=== PATIENT | male | born 1995 | race Caucasian/White ===

== ENCOUNTER 2019-09-04 21:40 | Emergency (ER) | payer BC ==
[~2019-09-04] VITALS: Ht 180.3 cm; Wt 77.1 kg
[2019-09-04 23:21] LABS: BASOPHILS 0.7 % (0.0-2.0); EOSINOPHILS 1.7 % (0.0-3.0); HEMATOCRIT 45.5 % (42.0-52.0); HEMOGLOBIN 15.4 gm/dL (14.0-18.0); LYMPHOCYTES 26.5 % (24.0-44.0); MCHC 33.8 g/dL (28.0-37.0); MCV 91.9 fL (80.0-100.0); MONOCYTES 7.4 % (1.0-8.0); PLATELET COUNT 259 thou/uL (150-400); POLYS 63.7 % (36.0-66.0); RBC 4.96 mil/uL (4.50-6.00); RDW 13.4 % (10.5-14.5); WBC 6.3 thou/uL (4.0-11.0)
[2019-09-04 23:28] LABS: ANION GAP 12 mmol/L (7-16); BUN 17 mg/dL (7-18); CALCIUM 9.3 mg/dL (8.5-10.1); CHLORIDE 102 mmol/L (98-107); CO2 27 mmol/L (21-32); CREATININE 1.1 mg/dL (0.7-1.3); GLUCOSE 106 mg/dL (74-106); SODIUM 141 mmol/L (136-145)
[2019-09-04 23:34] LABS: ALBUMIN 4.6 g/dL (3.4-5.0); DIRECT BILIRUBIN < 0.1 mg/dL (<0.1-0.2); MAGNESIUM 2.2 mg/dL (1.8-2.4); SGOT 15 U/L (15-37); SGPT 21 U/L (30-65); TOTAL BILIRUBIN 0.2 mg/dL (<0.1-1.0); TOTAL PROTEIN 8.2 g/dL (6.4-8.2)
[2019-09-05] VITALS: BP 111/65
--- NOTE | 2019-09-08 13:00 | EKG ---
[address] [address] ELECTROCARDIOGRAM REPORT Name: GHULAM HAM Room #: [facility]#: [id number] Admission: 09/04/19 Attend Phys: Discharge: 09/05/19 Date of : [birth year] Report #: [id number] THIS REPORT FOR: //name// [facility] ED Test Date: 2019-09-04 Test Time: 22:05:17 Pat Name: GHULAM HAM Department: Room: Gender: Sc[employer]aker: ALYSHA : 1995 Requested By: Pricilla Garcia Order Number: [id number] MD: Daryn Hoffman Measurements Intervals [place] Rate: 66 P: 40 DC: 156 QRS: 49 QRSD: 94 T: 45 QT: 394 QTc: 413 Interpretive Statements Sinus rhythm RSR' in V1 or V2, probably normal variant ST elev, probable normal early repol pattern No previous ECG available for comparison Electronically Signed On 09-08-2019 12:59:32 BUSINESS PROCESS ARCHITECT by Daryn Hoffman [email or web address] <ELECTRONICALLY SIGNED> By: Daryn Hoffman MD 09/08/19 2889 04 04 Daryn Hoffman MD /COTY
== END 2019-09-05 00:01 | disposition home or self-care (01) ==
LOC: ER 21:40
PROVIDERS: Emergency Medicine
DX: R00.2 Palpitations (principal); R06.02 Shortness of breath

== ENCOUNTER 2020-10-04 05:02 | Emergency (ER) | payer BC ==
[~2020-10-04] VITALS: Ht 180.3 cm; Wt 76.2 kg
[2020-10-04] MEDS ORDERED: ACETAMINOPHEN PO (05:09)
[2020-10-04 07:18] LABS: ABSOLUTE NEUTROPHILS 1.4 thou/uL (1.4-8.2); BASOPHILS 0.9 % (0.0-2.0); EOSINOPHILS 1.1 % (0.0-3.0); HEMATOCRIT 42.3 % (42.0-52.0); HEMOGLOBIN 14.3 gm/dL (14.0-18.0); LYMPHOCYTES 34.4 % (24.0-44.0); MCH 30.2 pg (26.0-34.0); MCHC 33.8 g/dL (28.0-37.0); MCV 89.1 fL (80.0-100.0); MONOCYTES 16.9 % (1.0-8.0); PLATELET COUNT 235 thou/uL (150-400); POLYS 46.7 % (36.0-66.0); RBC 4.75 mil/uL (4.50-6.00); RDW 13.3 % (10.5-14.5)
[2020-10-04 07:27] LABS: CALCIUM 9.5 mg/dL (8.5-10.1); POTASSIUM 3.7 mmol/L (3.5-5.1)
[2020-10-04 08:31] VITALS: BP 104/69
--- NOTE | 2020-10-04 11:13 | EKG ---
[place] [address] [facility] [place] [address] ELECTROCARDIOGRAM REPORT Name: FATOUMATAGHULAM [facility] [id number] Admission: 10/04/20 Attend Phys: Discharge: Date of : [birth year] Report #: [id number] [facility] ED Test Date: 2020-10-04 Test Time: 06:35:28 Pat Name: GHULAM HAM Department: Room: Gender: M [place]: [facility] : 1995 Requested By: Eh Gavin Order Number: [id number] MD: Thang Butler Measurements Intervals [place] Rate: 64 P: 43 UT: 165 QRS: 61 QRSD: 88 T: 33 QT: 401 QTc: 414 Interpretive Statements Sinus rhythm Lateral infarct, acute (LAD) J Point ST elevation, anterior leads Compared to ECG 09/04/2019 22:05:17 Myocardial infarct finding now present ST (T wave) deviation still present Electronically Signed On 10-04-2020 11:13:32 OPERATING ROOM COORDINATOR by Thang Butler [email or web address] <ELECTRONICALLY SIGNED> By: Thang Butler MD, [facility] 10/04/20 1113 4 4 Thang Butler MD, FACC /EPI
== END 2020-10-04 08:30 | disposition home or self-care (01) ==
LOC: ER 05:02
PROVIDERS: Emergency Medicine
DX: B34.9 Viral infection, unspecified (principal); Z79.899 Other long term (current) drug therapy; Z91.013 Allergy to seafood